=== PATIENT | male | born 2000 ===

== ENCOUNTER 2024-01-30 02:39 | Emergency (ER) | payer OTHER ==
[2024-01-30] MEDS ORDERED: LIDOCAINE 4% PATCH TP ONE (02:58)
[2024-01-30] MEDS ORDERED: KETOROLAC TROMETHAMINE 30 MG/1 ML VIAL ONE (02:58)
[2024-01-30 03:03] VITALS: BP 136/65; PULSE 92; RESP 18; TEMP 98.4
[2024-01-30] MEDS: LIDOCAINE 4% PATCH TP ONE (03:07)
[2024-01-30] MEDS: KETOROLAC TROMETHAMINE 30 MG/1 ML VIAL IM ONE (03:07)
[2024-01-30] MEDS ORDERED: LIDOCAINE PATCH REMOVAL MC ONE (15:00)
== END 2024-01-30 04:37 | disposition home or self-care (01) ==
LOC: JER 02:39
PROC: 3E0133Z Introduction of Anti-inflammatory into Subcutaneous Tissue, Percutaneous Approach (ICD-10-PCS; principal; 2024-01-30)
DX: M79.602 Pain in left arm (principal); M54.2 Cervicalgia; V49.69XA Unspecified car occupant injured in collision with other motor vehicles in traffic accident, initial encounter; Y92.410 Unspecified street and highway as the place of occurrence of the external cause
CPT/HCPCS: 73030-TC-LT-FY; 73060-TC-LT-FY; 73070-TC-LT-FY; 99284-25